=== PATIENT | male | born 1995 | race Caucasian/White ===

== ENCOUNTER 2017-10-22 11:43 | Emergency (ER) | payer BC ==
--- NOTE | 2017-10-22 12:01 | EDM.PDOC ---
ED HPI GENERAL MEDICAL PROBLEM - General Chief Complaint: Head Injury Stated Complaint: FELL AND HIT HIS HEAD ON THE ICE Time Seen by Provider: 10/22/17 12:00 Source of Information: Reports: Patient History Limitations: Reports: No Limitations - History of Present Illness INITIAL COMMENTS - FREE TEXT/NARRATIVE: HISTORY AND PHYSICAL: History of present illness: Patient is a 22-year-old male who presents to the emergency room after falling on the ice. He states he was curling with some friends and slipped and fell. Post fall he does not remember events. His friends state that he did not lose consciousness but did get up and appeared unsteady on his feet. They him here to the hospital. Patient is alert, oriented and steady on his feet with ambulation. There is a small abrasion to the top of his scalp. He offers no complaints or concerns other than some mild tenderness where the abrasion to the top of the scalp is. Any change in vision, headache, nausea, vomiting. He has no extremity pain. Unsure of last Tetanus Review of systems: As per history of present illness and below otherwise all systems reviewed and negative. Past medical history: As per history of present illness and as reviewed below otherwise noncontributory. Surgical history: As per history of present illness and as reviewed below otherwise noncontributory. Social history: No reported history of drug or alcohol abuse. Family history: As per history of present illness and as reviewed below otherwise noncontributory. Physical exam: Gen.: Well-developed and well-nourished 22-year-old male. Alert and oriented. Nontoxic appearing and in no acute distress. HEENT: Small abrasion noted to the top of head, no tenderness or obvious deformities with palpation, normocephalic, pupils reactive, negative for conjunctival pallor or scleral icterus, mucous membranes moist, throat clear, neck supple, nontender, trachea midline. Lungs: Clear to auscultation, breath sounds equal bilaterally, chest nontender. Heart: S1S2, regular rate and rhythm Abdomen: Soft, nondistended, nontender. Negative for masses or hepatosplenomegaly. Negative for costovertebral tenderness. Pelvis: Stable nontender. Genitourinary: Deferred. Rectal: Deferred. C-spine/Back: No pinpoint vertebral tenderness upon palpation. No crepitus, step -offs or obvious deformities noted. Patient is ambulatory and has a steady gait. Extremities: All extremities per self without difficulty or deficits. Full range of motion without tenderness with palpation. He isnegative for cords or calf pain. Neurovascular unremarkable. Neuro: Awake, alert, oriented. Cranial nerves II through XII unremarkable. Cerebellum unremarkable. Motor and sensory unremarkable throughout. Exam nonfocal. Tetanus was updated. CT shows no acute intracranial disease. Soft tissue swelling and/or mild hematoma mid and upper posterior scalp. Supportive care measures were reviewed with the patient. We reviewed head injury instructions. He voices understanding and is agreeable to plan of care. He does have a ride home at this time. Denies any questions. Diagnostics: Head CT, Cervical Spine xray Therapeutics: Ice, Tdap Impression: Head Injury Concussion Plan: 1. Tylenol and/or ibuprofen as needed for pain management. Apply ice to the painful areas for the next 24-48 hours. You may alternate ice and heat as desired thereafter. 2. Please rest for the next 24 hours. Avoid strenous/simulating activities for the next 1-2 days. 3. Follow-up with your primary care provider in the next 1-2 days. Return to the ED as needed and as discussed Definitive disposition and diagnosis as appropriate pending reevaluation and review of above. Onset: Today Duration: Minutes: Location: Reports: Head head Pain Score (Numeric/FACES): 0 - Related Data Allergies Allergy/AdvReac Type Severity Reaction Status Date / Time No Known Allergies Allergy Verified 10/22/17 12:06 Home Meds: Home Meds . [No Known Home Meds] 10/22/17 [History] ED ROS GENERAL - Review of Systems Review Of Systems: ROS reveals no pertinent complaints other than HPI. ED EXAM, HEAD INJURY - Physical Exam Exam: See Below (See dictation) Course - Vital Signs Last Recorded V/S: Last Vital Signs Temp 97.8 F 10/22/17 12:01 Pulse 80 10/22/17 12:01 Resp BP 141/93 H 10/22/17 12:01 Pulse Ox 98 10/22/17 12:01 - Orders/Labs/Meds Orders: Active Orders 24 hr Category Date Time Status Vaccines to be Administered [RC] PER UNIT ROUTINE Care 10/22/17 12:09 Active Cervical Spine 2V or 3V [CR] Stat Exams 10/22/17 12:01 Taken Head wo Cont [CT] Stat Exams 10/22/17 12:00 Taken Meds: Medications Discontinued Medications Generic Name Dose Route Start Last Admin Trade Name Chris PRN Reason Stop Dose Admin Diphtheria/Tetanus/Acell Pertussis 0.5 ml 10/22/17 12:09 10/22/17 12:43 Adacel IM 10/22/17 12:10 0.5 ml .ONCE ONE Administration Departure - Departure Time of Disposition: 13:04 Disposition: Home, Self-Care 01 Clinical Impression: Concussion Qualifiers: Encounter type: initial encounter Loss of consciousness presence/duration: with LOC of 30 min or less Qualified Code(s): S06.0X1A - Concussion with loss of consciousness of 30 minutes or less, initial encounter Head injury Qualifiers: Encounter type: initial encounter Qualified Code(s): S09.90XA - Unspecified injury of head, initial encounter - Discharge Information Instructions: Head Injury, Adult, [id number], Concussion, Adult, [id number] Forms: ED Department Discharge Additional Instructions: My general discharge The following information is given to patients seen in the emergency department who are being discharged to home. This information is to outline your options for follow-up care. We provide all patients seen in our emergency department with a follow-up referral. The need for follow-up, as well as the timing and circumstances, are variable depending upon the specifics of your emergency department visit. If you don't have a primary care physician on staff, we will provide you with a referral. We always advise you to contact your personal physician following an emergency department visit to inform them of the circumstance of the visit and for follow-up with them and/or the need for any referrals to a consulting specialist. The emergency department will also refer you to a specialist when appropriate. This referral assures that you have the opportunity for follow-up care with a specialist. All of these measure are taken in an effort to provide you with optimal care, which includes your follow-up. Under all circumstances we always encourage you to contact your private physician who remains a resource for coordinating your care. When calling for follow-up care, please make the office aware that this follow-up is from your recent emergency room visit. If for any reason you are refused follow-up, please contact the [facility] Emergency Department at and asked to speak to the emergency department charge nurse. [facility] [address] [place] [id number] 1. Tylenol and/or ibuprofen as needed for pain management. Apply ice to the painful areas for the next 24-48 hours. You may alternate ice and heat as desired thereafter. 2. Please rest for the next 24 hours. Avoid strenuous/simulating activities for the next 1-2 days. 3. Follow-up with your primary care provider in the next 1-2 days. Return to the ED as needed and as discussed - My Orders Last 24 Hours: My Active Orders 10/22/17 12:00 Head wo Cont [CT] Stat 10/22/17 12:01 Cervical Spine 2V or 3V [CR] Stat 10/22/17 12:09 Vaccines to be Administered [RC] PER UNIT ROUTINE - Assessment/Plan Last 24 Hours: My Active Orders 10/22/17 12:00 Head wo Cont [CT] Stat 10/22/17 12:01 Cervical Spine 2V or 3V [CR] Stat 10/22/17 12:09 Vaccines to be Administered [RC] PER UNIT ROUTINE
[2017-10-22] MEDS ORDERED: Diphtheria,Pertussis(Acell),Tetanus Vaccine 0.5 ML Syringe IM ONE (12:09)
--- NOTE | 2017-10-24 15:35 | CT ---
EXAM DATE: 10/22/17 PATIENT'S AGE: 22 Patient: KEVIN PINA Facility: [place], [place] Site . Site : 1995 Study: CT Head [id number]/17/2018 12:30:23 PM Ordering Physician: Doctor Morrow Final Report: INDICATION: Fell. Hit back of head on ice. TECHNIQUE: CT head with out IV contrast. FINDINGS: Small benign calcified nodules in the scalp bilaterally. Mild soft tissue swelling and hematoma in the scalp posteriorly and superiorly. No intracranial hemorrhage, edema, or mass effect. Remainder negative. IMPRESSION: No acute intracranial disease. Soft tissue swelling and/or mild hematoma mid and upper posterior scalp. Please note that all CT scans at this facility use dose modulation, iterative reconstruction, and/or weight-based dosing when appropriate to reduce radiation dose to as low as reasonably achievable. Dictated by Shawn Venegas MD @ Oct 22 2017 12:46PM (Electronic Signature) Report Signed by Proxy. JOSE
--- NOTE | 2017-10-24 15:36 | CR ---
EXAM DATE: 10/22/17 PATIENT'S AGE: 22 Patient: KEVIN PINA Facility: [place], [place] Site . Site : 1995 Study: XRay Spine Cervical [id number]/17/2018 12:43:46 PM Ordering Physician: Doctor Morrow Final Report: INDICATION: Fell, Hit head on ice COMPARISON: None. FINDINGS: Four views of the cervical spine demonstrate straightening of the normal cervical lordosis. There is no evidence of acute fracture subluxation. Disc spaces are preserved. Prevertebral soft tissues are normal. The odontoid process and lateral masses are intact. The lung apices are clear. IMPRESSION: Straightening of the normal cervical lordosis. No acute osseous abnormality. Dictated by Ruperto Davis MD @ 10/22/2017 12:53:47 PM Dictated by: Ruperto Davis MD @ 10/22/2017 12:54:00 (Electronic Signature) Report Signed by Proxy. JOSE
== END 2017-10-22 13:15 | disposition home or self-care (01) ==
LOC: MW.ED 11:43
DX: S06.0X9A Concussion with loss of consciousness of unspecified duration, initial encounter (principal); Z23 Encounter for immunization; W00.0XXA Fall on same level due to ice and snow, initial encounter
CPT/HCPCS: 70450; 70450-26; 72040; 72040-26; 90471; 90715; 99284; 99284-25